=== PATIENT | female | born 1980 | race Caucasian/White ===

== ENCOUNTER → 2017-04-01 | Outpatient (CLI) | payer MEDICAID | LOC: FIMAGING 08:27 | PROVIDERS: ATTEND Podiatrist Foot & Ankle Surgery | DX: S93.422A Sprain of deltoid ligament of left ankle, initial encounter (principal); S86.312A Strain of muscle(s) and tendon(s) of peroneal muscle group at lower leg level, left leg, initial encounter; M24.172 Other articular cartilage disorders, left ankle; Z98.890 Other specified postprocedural states ==